=== PATIENT | female | born 1940 | race Caucasian/White ===

== ENCOUNTER → 2018-12-28 | Outpatient (CLI) | payer MEDICARE ==
[~2018-12-28] MED LIST: AMLO-98 PO; BECR40 INH; CALC-614 PO; CEP500 PO; GLUC1TAB38 PO; LANS30CA70 PO; LIS10 PO; OMEP10CA41 PO; OMEP40CA48 PO; PAN40 PO; RIS35 PO
--- NOTE | 2018-12-28 11:14 | RADIOLOGY IMAGING REPORT ---
FACILITY: [facility] PATIENT NAME: Tamica Noonan : 1940 MR: [id number] V: [id number] EXAM DATE: ORDERING PHYSICIAN: SELVIN AL TECHNOLOGIST[place] [facility] [place] No[place] : 1940 Visit/Account:[id number] Date of Sevice: 12/28/2018 CHEST PA AND LAT HISTORY: Coughing at night. COMPARISON: January 04, 2017. FINDINGS: Cardiomediastinal contours: The heart size is normal. Lungs and pleura: There is no finding of an infiltrate, lymphadenopathy or pleural effusion. Bones/soft tissues: There are no findings of a fracture. Abdomen: There are surgical clips in the right upper quadrant and midepigastric region. IMPRESSION: 1. No active disease in the chest. 2. Postoperative changes. Report Dictated By: Cordell Alberts MD at 12/28/2018 11:07 AM Report E-Signed By: Cordell Alberts MD at 12/28/2018 11:08 AM WSN:[email or web address]
--- NOTE | 2018-12-28 11:15 | RADIOLOGY IMAGING REPORT ---
FACILITY: [facility] [place] PATIENT NAME: Tamica Noonan : 1940 MR: [id number] V: [id number] EXAM DATE: ORDERING PHYSICIAN: SELVIN AL TECHNOLOGIST: Location: [facility] Patient: Tamica Noonan : 1940 Visit/Account:[id number] Date of Sevice: 12/28/2018 HAND COMPLETE RIGHT History: History of osteoarthrosis. Comparison study: None. Findings: There is diffuse osteopenia but no findings of a fracture. The trapezium is been removed. There is residual osteoarthrosis in the triscaphe joint. There are findings of joint space narrowing with bony proliferation in the right second DIP joint as well. These findings could also represent osteoarthrosis or perhaps erosive osteoarthrosis. There is no chondrocalcinosis. IMPRESSION: 1. Osteopenia without fracture. 2. Status post resection of the trapezium. Residual osteoarthrosis in the triscaphe joint. 3. Degenerative changes in the right second DIP joint suggestive of osteoarthrosis or erosive osteoa rthrosis. Report Dictated By: Cordell Alberts MD at 12/28/2018 11:09 AM Report E-Signed By: Cordell Alberts MD at 12/28/2018 11:10 AM WSN:[email or web address]
== END ==
LOC: RAD 10:38
PROVIDERS: ATTEND Family Medicine
DX: M25.541 Pain in joints of right hand (principal); Z12.31 Encounter for screening mammogram for malignant neoplasm of breast; Z78.0 Asymptomatic menopausal state; R91.8 Other nonspecific abnormal finding of lung field; M81.0 Age-related osteoporosis without current pathological fracture
CPT/HCPCS: 71046

== ENCOUNTER → 2019-02-03 | Outpatient (CLI) | payer MEDICARE ==
--- NOTE | 2019-02-03 09:53 | RADIOLOGY IMAGING REPORT ---
FACILITY: [facility] PATIENT NAME: Tamica Noonan : 1940 MR: [id number] V: [id number] EXAM DATE: ORDERING PHYSICIAN: SELVIN AL TECHNOLOGIST: Location: [facility] [place] Patient: Tamica Noonan : 1940 Visit/Account:[id number] Date of Sevice: 02/03/2019 DEXA Scan Clinical history: Postmenopausal screening. Comparison: DEXA scan from T11 1610. LUMBAR SPINE: The bone mineral density (BMD) measured from L1-L4 correlates with a Z-score of -0.7 and a T-score of -2.5 which is osteoporosis as defined by the World Health Organization. The corresponding risk of f racture in the lumbar spine is 6 times increased compared with a young adult reference population. T his value has decrease by 18.1 % since the prior study. More than 5% change is considered significan t. HIP: Bone mineral density (BMD) measured in the LEFT total hip region correlates with a Z-score -0.8 and a T-score of -2.8 which is osteoporosis as defined by the World Health Organization. The correspondin g risk of fracture in the hip is 6-8 times increased compared to a young adult reference population. This value has decrease by 20.8 % since the prior study. More than 5% change is considered significa nt. T score left femoral neck -2.9 Bone mineral density (BMD) measured in the Femoral Neck region measures 0.642 g/cm?. IMPRESSION: 1. Lumbar spine: Osteoporosis. There has been 18.1% decrease in the bone mineral density since the previous exam. 2. Left Total Hip: Osteoporosis. There has been 20.8% decrease in the bone mineral density since th e previous exam. 3. Femoral Neck: Bone Mineral Density is 0.642 g/cm? The next DEXA scan of this patient should include the following sites: L1-L4 and the left hip. FRAX? WHO Fracture Risk Assessment Tool link: <http://www.shef.ac.uk/FRAX/tool.jsp?locationValue=9> PLEASE NOTE: 1) The World Health Organization defines low BMD as follows: T-score Normal > -1 Osteopenia < -1 and > -2.5 Osteoporosis < -2.5 without fractures Established osteoporosis < -2.5 with fractures 2) In general, you may wish to consider: Diagnosis Treatment Follow-up DEXA Normal BMD Prevention 2-3 years Osteopenia Prevention/therapy 1-2 years Osteoporosis Therapy Yearly 3) Fracture risk estimated from the T-score is more accurate for vertebral fractures (often spontane ous) than for hip fractures. Report Dictated By: Mila Bailey MD at 02/03/2019 9:45 AM Report E-Signed By: Mila Bailey MD at 02/03/2019 9:47 AM WSN:[email or web address]
== END ==
LOC: MAMO 08:52
PROVIDERS: ATTEND Family Medicine
DX: M85.88 Other specified disorders of bone density and structure, other site (principal)
CPT/HCPCS: 77080

== ENCOUNTER → 2019-03-07 | Outpatient (CLI) | payer MEDICARE ==
--- NOTE | 2019-03-08 11:43 | RADIOLOGY IMAGING REPORT ---
FACILITY: [facility] - [place] PATIENT NAME: ANA LUISA WILSON : [id number] MR: [id number] V: [id number] EXAM DATE: [id number] ORDERING PHYSICIAN: SELVIN AL TECHNOLOGIST: Gisele Fernandez PROCEDURE: BILATERAL DIGITAL SCREENING MAMMOGRAM WITH CAD ASSISTED INTERPRETATION & 3D TOMOSYNTHESIS REASON FOR STUDY: Screening. FAMILY HISTORY OF BREAST CANCER: None. BREAST PROCEDURES/TREATMENTS: Benign surgical biopsy of the Right breast. COMPARISON: 02/27/13. VIEWS OBTAINED: Bilateral 2D & 3D full field CC & MLO projections. BREAST DENSITY: There are scattered areas of fibroglandular density throughout the breasts. MAMMOGRAM FINDINGS: The parenchymal pattern has remained stable allowing for difference in mammographic technique & patient positioning. IMPRESSION: BIRADS 1: Negative. DIAGNOSTIC CATEGORY 1--NEGATIVE. RECOMMENDATIONS: ROUTINE MAMMOGRAM AND CLINICAL EVALUATION. Dictated by: Mila Bailey M.D. on 03/07/2019 at 16:54 Transcribed by: VEE on 03/08/2019 at 11:16 Approved by: Mila Bailey M.D. on 03/08/2019 at 11:38 [facility]
== END ==
LOC: MAMO 01:24
PROVIDERS: ATTEND Family Medicine
DX: Z12.31 Encounter for screening mammogram for malignant neoplasm of breast (principal)
CPT/HCPCS: 77063; 77067